=== PATIENT | male | born 1995 | race Two or more races ===

== ENCOUNTER → 2024-07-23 | Emergency (ER) | payer OTHER ==
[~2024-07-23] VITALS: Ht 182.9 cm; Wt 77.1 kg
[~2024-07-23] MED LIST: CEFTRIAXONE SODIUM 1,000 MG VIAL IM STA; KETOROLAC TROMETHAMINE 30 MG VIAL IM STA
== END | disposition home or self-care (01) ==
LOC: ER 14:13
DX: K08.89 Other specified disorders of teeth and supporting structures (principal)